=== PATIENT | male | born 1985 | race African-American/Black ===

== ENCOUNTER 2018-09-18 08:35 | Emergency (ER) | payer SELFPAY ==
[2018-09-18] MEDS: DEXAMETHASONE 10 MG/ML 1 ML INJ IM ×2 (09:30→09:37)
[2018-09-18] MEDS: KETOROLAC 60 MG INJ IM (09:30)
== END 2018-09-18 09:44 | disposition home or self-care (01) ==
LOC: FTE 08:35
DX: M54.9 Dorsalgia, unspecified (principal)
CPT/HCPCS: 96372; 99284-25